=== PATIENT | male | born 2000 | race Two or more races ===

== ENCOUNTER 2023-07-14 18:25 | Emergency (ER) | payer MEDICAID ==
[~2023-07-14] VITALS: Ht 175.3 cm; Wt 70.4 kg
[2023-07-14] MEDS ORDERED: BENZLOZ2 MT (22:21)
[2023-07-14] MEDS ORDERED: PRED20TA2 PO (22:21)
[2023-07-14] MEDS ORDERED: CEPH500C PO (22:21)
[2023-07-14] MEDS ORDERED: FLUO0.05 TOP (22:21)
[2023-07-14] MEDS ORDERED: HYDR25CA PO (22:21)
[2023-07-15] MEDS: FAMOTIDINE 20 MG TAB PO ONE (00:34)
[2023-07-15] MEDS: diphenhdrAMINE HCL 25 MG CAP PO ONE (00:35)
[2023-07-15] MEDS: DexAMETHasone SOD PHOS 10MG/1ML VIAL INJ IM ONE (00:36)
[2023-07-15] MEDS: cefTRIAXone SOD 1,000 MG VL IM ONE (00:37)
[2023-07-15 01:36] VITALS: BP 133/64; PULSE 65; RESP 20; TEMP 98.7
[2023-07-15 01:37] VITALS: O2SAT 98
== END 2023-07-15 01:42 | disposition home or self-care (01) ==
LOC: ER 18:25
DX: J03.90 Acute tonsillitis, unspecified (principal); L30.9 Dermatitis, unspecified
CPT/HCPCS: 96372; 99284; J0696; J1100

== ENCOUNTER 2024-04-05 06:50 | Emergency (ER) | payer MEDICAID ==
[~2024-04-05] VITALS: Ht 175.3 cm; Wt 81.0 kg
[~2024-04-05 06:50] MED LIST: BENZLOZ2 MT; CEPH500C PO; FLUO0.05 TOP; HYDR25CA PO; PRED20TA2 PO
[2024-04-05 07:01] VITALS: TEMP 98.4
--- NOTE | 2024-04-05 07:26 | ED.PDOC ---
Musculoskeletal HPI Comments 23 year old male presents to the ED with chief complaint of bilateral knee pain. Patient reports that he has been experiencing bilateral knee pain for the past week, noticing it since starting work at [employer] 2 weeks ago. Patient relays that his pain has worsened over time and now it is harder to walk without pain. Aleyda ent states his pain got better on his days off, then worse again when working. Patient denies any injury, fall, numbness, or weakness. Time Seen by MD: 07:23 Primary Care Provider: NONE Reviewed Notes: Nurses Notes, Medications, Allergies Allergies: Coded Allergies: NO KNOWN ALLERGIES (Unverified , 07/14/23) Home Meds Active Scripts Cephalexin Monohydrate (Cephalexin) 500 Mg Cap, 1 CAP PO QID for 10 Days, #40 CAP Prov:DEV WRAYA Q GAS ADJUSTER 07/14/23 Benzocaine-Menthol (Mouth-Thro (Cepacol Sore Throat) 1 Catrina Catrina, 1 CATRINA MT Q4HPRN PRN, #24 CATRINA NEEDED FOR SORETHROAT Prov:JAIR WRAY Q GAS ADJUSTER 07/14/23 Prednisone (Prednisone) 20 Mg Tab, 1 TAB PO BID for 5 Days, #10 TAB Start tomorrow with food Prov:JAIR WRAY Q GAS ADJUSTER 07/14/23 Hydroxyzine Pamoate (Vistaril) 25 Mg Cap, 1 CAP PO Q8HPRN PRN, #20 CAP NEEDED FOR ITCHING Prov:JAIR WRAY Q GAS ADJUSTER 07/14/23 Fluocinonide (Lidex) 0.05 % Cre, 1 APPLIC TOP BID for 21 Days, #60 GRAMS APPLY TO THE AFFECTED AREA FOR 3 WEEKS ONLY Prov:JAIR WRAY Q GAS ADJUSTER 07/14/23 Information Source: Patient Mode of Arrival: Ambulatory Location: Bilateral Extremity Location: Knee Timing: Weeks Prehospital treatment: None Severity: Moderate Able to Move Extremity: Yes Bear Weight: Limited Pain: Moderate Mechanism: Hyperextension Circumstances: Work Related Onset of Symptoms: Spontaneous Symptoms: Pain DVT Risk Factors: NONE Last Tetanus: UTD Past Medical History PAST MEDICAL HISTORY: Denies Surgical History: Denies all surgeries Family History Family History: Reviewed,noncontributory to illness Social History Smoker: Non-Smoker Alcohol: Denies ETOH Use Drugs: Denies Drug Use Lives In: Home Constitutional: denies: chills, diaphoresis, fatigue, fever, malaise, sweats, weakness, others EENTM: denies: blurred vision, double vision, ear bleeding, ear discharge, ear drainage, ear pain, ear ringing, eye pain, eye redness, hearing loss, mouth pain, mouth swelling, nasal discharge, nose bleeding, nose congestion, nose pain, photophobia, tearing, throat pain, throat swelling, voice changes, others Respiratory: denies: cough, hemoptysis, orthopnea, SOB at rest, shortness of breath, SOB with excertion, stridor, wheezing, others Cardiovascular: denies: chest pain, dizzy spells, diaphoresis, Dyspnea on exertion, edema, irregular heart beat, left arm pain, lightheadedness, palpitations, PND, syncope, others Gastrointestinal: denies: abdomen distended, abdominal pain, blood streaked bowels, constipated, diarrhea, dysphagia, difficulty swallowing, hematemesis, melena, nausea, poor appetite, poor fluid intake, rectal bleeding, rectal pain, vomiting, others Genitourinary: denies: burning, dysuria, flank pain, frequency, hematuria, incontinence, penile discharge, penile sore, pain, testicle pain, testicle swelling, urgency, others Neurological: denies: dizziness, fainting, headache, left sided numbness, left sided weakness, numbness, paresthesia, pre-existing deficit, right sided numbness, right sided weakness, seizure, speech problems, tingling, tremors, weakness, others Musculoskeletal: reports: joint pain (Bilateral knee pain); denies: back pain, gout, joint swelling, muscle pain, muscle stiffness, neck pain, others Integumetry: denies: bruises, change in color, change in hair/nails, dryness, laceration, lesions, lumps, rash, wounds, others Allergic/Immunocompromised: denies: Difficulty Healing, Frequent Infections, Hives, Itching, others Hematologic/Lymphatic: denies: anemia, blood clots, easy bleeding, easy bruising, swollen glands, others Endocrine: denies: excessive hunger, excessive sweating, excessive thirst, excessive urination, flushing, intolerance to cold, intolerance to heat, unexplained weight gain, unexplained weight loss, others Psychiatric: denies: anxiety, bipolar disorder, depression, hopeless, panic disorder, schizophrenia, sleepless, suicidal, others All Other Systems: Reviewed and Negative Physical Exam General Appearance: Mild Distress, Normal HEENT: Normal ENT Inspection, PERRL/EOMI Neck: Full Range of Motion, Non-Tender, Normal, Normal Inspection Respiratory: Chest Non-Tender, Lungs Clear, No Accessory Muscle Use, No Respiratory Distress, Normal Breath Sounds Cardiovascular: No Edema, No JVD, No Murmur, No Gallop, Normal Peripheral Pulses, Regular Rate/Rhythm Breast Exam: Deferred Gastrointestinal: No Organomegaly, Non Tender, No Pulsatile Mass, Normal Bowel Sounds, Soft Genitalia: Deferred Pelvic: Deferred Rectal: Deferred Extremities: No calf tenderness, Normal capillary refill, Normal inspection, Normal range of motion, Non-tender, No pedal edema Musculoskeletal : Apperance: Normal Neurologic: Alert, forest aide II-XII nml as Tested, No Motor Deficits, Normal Affect, Normal Mood, No Sensory Deficits Cerebellar Function: Normal Reflexes: Normal Skin: Dry, Normal Color, Warm Peripheral Pulses: 3+ Radial (R), 3+ Radial (L) Lymphatic: No Adenopathy Was a procedure done? Was a procedure done?: No Differential Diagnosis EXT Differential Diagnosis: Sprain, Strain X-Ray, Labs, Meds, VS Vital Signs Date Time Temp Pulse Resp B/P (MAP) Pulse Ox O2 Delivery O2 Flow Rate FiO2 04/05/24 07:27 98.4 99 16 158/91 (113) 96 04/05/24 07:01 98.4 99 16 158/91 (113) 96 98.4 04/05/24 07:01 99 16 96 Room Air Current Medications Medications (Trade) Dose Ordered Sig/Chandana Route Start Time Stop Time Status Last Admin Ketorolac Tromethamine (Toradol Injection) 60 mg ONCE ONCE IM 04/05/24 09:00 04/05/24 09:01 DC 04/05/24 09:09 Patient alert. Complaining of bilateral knee pain. No sign of any trauma. Vitals stable. Examination pristine. Was given pain medication. Ranjan wrap. X-ray reviewed does not show any acute process. No reason to have the pain he is having. He is anxious. Explained to the patient that he will need outpatient follow up with pain specialist textile screen printer possible pain management. He is young no sign of any osteoarthritis. No leg swelling. No shortness a breath. Blood pressure could be due to his anxiety. Was told to follow up with his primary care physician. Was told to come back if there is any problem. Was given prescription of Motrin. Time of 1ST Reevaluation: 08:23 Reevaluation 1ST: Improved Patient Education/Counseling: Diagnosis, Treatment Family Education/Counseling: No Family Present Departure 1 Departure Time of Disposition: 09:15 Impression: Primary Impression: Chronic pain syndrome Disposition: HOME / SELF CARE / HOMELESS Condition: Good e-Prescriptions Ibuprofen Micronized (Ibuprofen) 800 Mg Tab 800 MG PO DAILY for 10 Days, #10 TAB Prov: MANAS DENISE MD 04/05/24 Discharged With: Self Critical Care Note Critical Care Time?: No Stability Stability form required: No Heart Score Heart Score: Heart Score Response (Comments) Value History N/A 0 EKG N/A 0 Age N/A 0 Risk Factors N/A 0 Troponin N/A 0 Total 0 I personally scribed for MANAS DENISE MD ([email or web address]) on 04/05/24 at 07:26. Electronically submitted by Boby Quevedo ([email or web address]). MANAS DENISE MD Apr 05, 2024 07:26
[2024-04-05 07:27] VITALS: BP 158/91; PULSE 99; RESP 16; O2SAT 96
--- NOTE | 2024-04-05 08:48 | DVH ---
EXAM: XY L KNEE 2V XRAY, XY R KNEE 2V XRAY CLINICAL INDICATION: osteo TECHNIQUE: XY L KNEE 2V XRAY, XY R KNEE 2V XRAY Comparison: None FINDINGS/IMPRESSION: There is no evidence of acute fracture or dislocation. The visualized joint space is well maintained. The alignment is anatomical. Diffuse soft tissue
[2024-04-05] MEDS: KETOROLAC TROMETH 60MG/2ML VIAL IM ONE (09:09)
[2024-04-05] MEDS ORDERED: IBUP-1455 PO (09:16)
== END 2024-04-05 09:16 | disposition home or self-care (01) ==
LOC: ER 06:50
DX: G89.4 Chronic pain syndrome (principal); M25.562 Pain in left knee; M25.561 Pain in right knee
CPT/HCPCS: 73560; 96372; 99283; J1885